=== PATIENT | male | born 1990 | race Hispanic/Latino ===

== ENCOUNTER 2023-03-03 12:20 | Emergency (ER) | payer OTHER, SELFPAY ==
--- NOTE | ~2023-03-03 | XR_ITS ---
EXAMINATION: XR chest 2V DATE: 03/03/2023 13:03 INDICATION: Chest pain TECHNIQUE: PA and lateral views of the chest are obtained. COMPARISON: None available FINDINGS: The lungs are free of acute opacities. No pleural effusion or pneumothorax. The cardiomedia stinal silhouette is normal. The visualized bones and soft tissues are unremarkable. IMPRESSION: 1. No acute cardiopulmonary abnormality. Reviewed, dictated and finalized at location B.
--- NOTE | 2023-03-03 12:23 | ECG_ITS ---
Measurements Intervals [place] Rate: 86 P: 54 RI: 112 QRS: 39 QRSD: 105 T: 39 QT: 354 QTc: 425 Interpretive Statements SINUS RHYTHM WITH SHORT RI INTERVAL NO PREVIOUS ECG AVAILABLE FOR COMPARISON Electronically Signed On 03-04-2023 14:56:59 CDT by Ana Munoz M.D.
[2023-03-03 12:56] LABS: Basophils Percent Auto 0.4 % (0.2-1.2); Eosinophils Absolute Auto 0.1 K/mm3 (0-0.3); Eosinophils Percent Auto 0.8 % (0-4.4); Hematocrit 47.5 % (42.0-52.0); Immature Granulocyte Absolute 0.04 K/mm3 (0.00-0.031); Immature Granulocyte Percent A 0.5 % (0-0.5); Lymphocytes Percent Auto 20.8 % (18.3-44.2); Mean Corpuscular HGB Conc 33.7 g/dl (32-36); Mean Corpuscular Volume 83.2 fl (80-100); Mean Platelet Volume 10.1 fl (7.4-10.4); Monocytes Absolute Auto 0.6 K/mm3 (0.1-0.6); Monocytes Percent Auto 7.5 % (2.6-8.5); Neutrophils Absolute Auto 5.4 K/mm3 (1.3-6.7); Platelet Count Result 239 k/mm3 (150-375); Red Blood Count 5.71 M/mm3 (4.6-6.20); White Blood Count 7.7 K/mm3 (4.5-10.0)
[2023-03-03 13:10] LABS: Prothrombin Time 13.1 Seconds (11.1-14.7)
[2023-03-03 13:11] LABS: Partial Thromboplastin Time 24.6 SECONDS (22.3-36.8)
[2023-03-03 13:16] LABS: Alanine Aminotransferase 53 U/L (6-50); Albumin Level 5.3 g/dL (3.5-5.1); Alkaline Phosphatase 108 U/L (38-126); Anion Gap 10 mmol/L (8-16); Aspartate Amino Transferase 40 U/L (17-59); Bilirubin,Total 0.8 mg/dL (0.2-1.3); Blood Urea Nitrogen 12 mg/dL (9-20); Calcium 9.4 mg/dL (8.4-10.2); Carbon Dioxide 28 mmol/L (22-30); Chloride 101 mmol/L (98-107); Estimated Glomerular Filt Rate > 60; Glucose 113 mg/dL (65-110); Lipase 43 U/L (23-300); Potassium 3.7 mmol/L (3.4-5.0); Sodium 139 mmol/L (137-145)
[2023-03-03 13:23] VITALS: BP 147/83; PULSE 100; RESP 18; TEMP 36.7; O2SAT 99
[2023-03-03 13:27] LABS: Troponin I < 0.012 ng/mL (0.000-0.034)
[2023-03-03 16:29] LABS: Troponin I < 0.012 ng/mL (0.000-0.034)
[2023-03-03 20:07] LABS: Troponin I < 0.012 ng/mL (0.000-0.034)
--- NOTE | 2023-03-03 21:44 | ED.CHESTPAIN ---
HPI - Chest Pain General Chief Complaint: Chest Pain Stated Complaint: chest pain-sent from [facility] Time Seen by Provider: 03/03/23 21:18 History of Present Illness HPI narrative: 32-year-old male without any medical history reports for evaluation of chest pain for 1 to 2 months. Patient reports intermittent sharp chest pains to his anterior left chest wall that last 1 second and occurs a few times per week. Reports last time he felt this sensation was this morning, he has been asymptomatic while in the ED. Denies shortness of breath, lightheadedness, abdominal pain, nausea, vomiting, diarrhea, back pain, fever, body aches, chills, lower extremity edema. He denies personal or family history of cardiac disease. Denies history of VTE, hormone use, and other risk factors for VTE. Pt reports having increased anxiety recently. Denies SI/HI. Related Data Allergies Allergy/AdvReac Type Severity Reaction Status Date / Time No Known Allergies Allergy Unknown Verified 03/03/23 13:26 Review of Systems Review of Systems: CONSTITUTIONAL: Denies fever, chills EYES: Denies visual changes, redness, or discharge. ENT: Denies rhinorrhea, congestion, sore throat, or otalgia. CARDIOVASCULAR: See HPI RESPIRATORY: Denies cough or dyspnea. GASTROINTESTINAL: Denies abdominal pain, nausea, vomiting, or diarrhea. GENITOURINARY: Denies dysuria or hematuria. SKIN: Denies rash or itching. MUSCULOSKELETAL: Denies back pain, joint pain, or myalgia. NEUROLOGIC: Denies headache, numbness, dizziness, or weakness. PSYCHIATRIC: Denies anxiety or depression. Exam Narrative: GENERAL: Well-appearing, well-nourished, and in no acute distress. Patient resting comfortably in the exam bed. He is pleasant and conversational. HEAD: Normocephalic, atraumatic. EYES: PERRLA and EOMI. ENT: Nares clear, no rhinorrhea or epistaxis. Mucous membranes moist. Oropharynx without tonsillar hypertrophy exudate or other lesions. NECK: Supple. No adenopathy or masses. CHEST: Clear to auscultation. No respiratory distress. No wheezes rales or rhonchi. HEART: Regular rate and rhythm. No murmur heard. Normal peripheral pulses. ABDOMEN: Soft, nontender, nondistended, normal active bowel sounds. EXTREMITIES: Normal range of motion. No edema. Negative Homans bilaterally. No pain with calf squeeze. SKIN: Warm, dry, no rash. NEURO: No focal deficits. Alert and oriented x3. PSYCH: Normal mood and affect. Course Vital Signs Vital signs: Vital Signs Temperature 98.1 F 03/03/23 13:23 Pulse Rate 100 03/03/23 13:23 Respiratory Rate 18 03/03/23 13:23 Blood Pressure 147/83 H 03/03/23 13:23 Pulse Oximetry 99 03/03/23 13:23 Temperature 98.1 F 03/03/23 13:23 Pulse Rate 100 03/03/23 13:23 Respiratory Rate 18 03/03/23 13:23 Blood Pressure 147/83 H 03/03/23 13:23 Pulse Oximetry 99 03/03/23 13:23 MDM - Chest Pain MDM Narrative Medical decision making narrative: 32-year-old male without medical history reports for evaluation of intermittent sharp chest pains that lasts less than 1 second for the past 1 to 2 months, occurring a few times per week. No shortness of breath, abdominal pain, back pain. Patient is neurovascularly intact on exam. No calf tenderness, negative Homans bilaterally. EKG reveals sinus rhythm, no ischemic changes. 3 Troponin obtained and negative. CBC without leukocytosis. CMP without significant findings. Lipase normal. PT PTT normal. Chest x-ray without acute cardiopulmonary abnormality. Patient received aspirin in the ED. He has been asymptomatic while in the ED. PE is less likely due to no tachycardia or hypoxia, no physical exam signs of DVT, PERC negative. Heart score 1. I feel patient is safe to be discharged home as his vitals remain stable and he is asymptomatic while in the ED. Advised close follow up with PCP. Strict ED return precautions. Pt agrees to the plan and verbalizes understanding. Vitals remain stable in ED. Liz
[2023-03-03 22:09] VITALS: BP 114/69; PULSE 73; RESP 15; O2SAT 97
--- NOTE | 2023-03-03 22:11 | PC.NURSE ---
Patient denies chest pain at this time
== END 2023-03-03 22:28 | disposition home or self-care (01) ==
PROVIDERS: Emergency Medicine; Emergency Provider Physician Assistant
DX: R07.89 Other chest pain (principal)
CPT/HCPCS: 36415; 71046; 80053; 83690; 84484; 85025; 85610; 85730; 93005; 99284

== ENCOUNTER 2024-02-16 16:35 | Emergency (ER) | payer OTHER, SELFPAY ==
[2024-02-16 16:47] VITALS: BP 143/80; PULSE 90; RESP 16; TEMP 37.6; O2SAT 99
--- NOTE | 2024-02-16 17:17 | ED.URI ---
HPI - URI/Sore Throat General Chief Complaint: Upper Respiratory Infection Stated Complaint: sore throat,eyes red/discharge Time Seen by Provider: 02/16/24 17:20 Source: patient and RN notes reviewed Mode of arrival: ambulatory Limitations: no limitations History of Present Illness HPI Narrative: 33-year-old male presents concern for 5 day history of sore throat, runny nose, stuffy nose. Reports the symptoms are resolving but he woke up with eyes crusted shut with green drainage this morning. Reports bilateral eye drainage, irritation. Denies vision changes MD elicited complaint: sore throat and other (eye drainage) Pertinent past history: HIV Related Data Allergies Allergy/AdvReac Type Severity Reaction Status Date / Time No Known Allergies Allergy Unknown Verified 02/16/24 17:05 Review of Systems Review of Systems: CONSTITUTIONAL: Denies malaise, chills, sweats, or fever. EYES: Denies visual changes. Reports bilateral redness,, irritation, green discharge. ENT: Reports resolving rhinorrhea, congestion, and sore throat. CARDIOVASCULAR: Denies chest pain, palpitations, or edema. RESPIRATORY: Reports cough. Denies dyspnea. GASTROINTESTINAL: Denies abdominal pain, nausea, vomiting, diarrhea SKIN: Denies rash or itching. MUSCULOSKELETAL: Denies myalgia. NEUROLOGIC: Denies headache. All systems reviewed & are unremarkable except as noted in HPI and below PMFSH Comments At time of signature, agree with nursing past medical, surgical, social and family history. There is no relevant family history pertinent to the presenting complaint Exam Narrative: GENERAL: Well-appearing, well-nourished, and in no acute distress. HEAD: Normocephalic EYES: PERRLA, conjunctivae and sclera injected bilateral green discharge ENT: Nares clear. Mucous membranes moist. TM pearly nascimento with dull light reflex bilaterally; no tragal tenderness. Oropharynx not erythematous without lesions. Tonsils not enlarged and without exudate, no drooling, no hoarseness, no trismus, uvula midline. NECK: Supple. No lymphadenopathy CHEST: Clear to auscultation, breath sounds equal. No wheezing, rhonchi, rales, or stridor. No respiratory distress, speaks in full sentences. HEART: Regular rate and rhythm. No murmur heard. SKIN: Warm, dry, no rash. NEURO: Alert and oriented x3. PSYCH: Normal mood and affect Course Course Emergency Course: Patient is aware of diagnosis, understands and agrees to treatment plan. Anticipatory guidance given. Patient agrees to follow-up as directed and is aware of reasons to seek care at the emergency department. Portions of this record may have been created with voice recognition software Level of Care: Express Care Visit Vital Signs Vital signs: Vital Signs Temperature 99.7 F H 02/16/24 16:47 Pulse Rate 90 02/16/24 16:47 Respiratory Rate 16 02/16/24 16:47 Blood Pressure 143/80 H 02/16/24 16:47 Pulse Oximetry 99 02/16/24 16:47 Oxygen Delivery Room Air 02/16/24 16:47 Temperature 99.7 F H 02/16/24 16:47 Pulse Rate 90 02/16/24 16:47 Respiratory Rate 16 02/16/24 16:47 Blood Pressure 143/80 H 02/16/24 16:47 Pulse Oximetry 99 02/16/24 16:47 Oxygen Delivery Room Air 02/16/24 16:47 Reviewed. MDM - URI/Sore Throat MDM Narrative Medical decision making narrative: Differential diagnosis considered: [place] virus, strep pharyngitis, allergic rhinitis, upper respiratory tract infection, sinusitis, rhinosinusitis, nasopharyngitis. viral pharyngitis, otitis media, otitis externa, pneumonia, bronchitis, viral cough syndrome, viral syndrome, and influenza. Exam findings show no acute concerns or changes; patient is non-toxic appearing and is in no distress. Patient is appropriate for outpatient treatment and follow-up. Lab Data Attestation: I reviewed the patient's lab results. Critical Care Time Critical Care Time Critical Care Time: No Discharge Plan Discharge Clinical Impression:
== END 2024-02-16 17:45 | disposition home or self-care (01) ==
PROVIDERS: Emergency Provider Nurse Practitioner
DX: H10.9 Unspecified conjunctivitis (principal)
CPT/HCPCS: 87081; 87880; 99213; G0463